=== PATIENT | male | born 1935 | race Caucasian/White ===

== ENCOUNTER 2017-11-16 11:29 | Observation (INO) | payer OTHER ==
[2017-11-16] VITALS (7 sets, daily range): BP systolic 111–134; BP diastolic 58–73; PULSE 60–64; RESP 16–20; TEMP 96.1–98.1; O2SAT 94–100
[~2017-11-16] VITALS: Ht 180.3 cm; Wt 105.0 kg
[2017-11-16] MEDS ORDERED: ASPI-516 CHEW (11:50)
[2017-11-16] MEDS ORDERED: SIMV10TA PO (11:50)
[2017-11-16] MEDS ORDERED: OMEP20TA93 PO (11:50)
[2017-11-16] MEDS ORDERED: SPIR25TA PO (11:50)
[2017-11-16] MEDS ORDERED: LEVO50TA4 PO (11:50)
[2017-11-16] MEDS ORDERED: METO25TA3 PO (11:50)
[2017-11-16] MEDS ORDERED: LOSA25TA PO (11:50)
--- NOTE | 2017-11-16 11:54 | PD ---
HPI Chief Complaint: General Weakness Time Seen by Provider: 11:47 Travel History International Travel<30 days: No Contact w/Intl Traveler<30days: No Traveled to known affect area: No History of Present Illness HPI 82-year-old male came to the emergency room with history of sudden onset intense dizziness/vertigo sensation when he got out of bed to go to the bathroom at 3 AM. He was unable to make it to the bathroom and had to go back and laid down. Then in the morning when he woke up and tried to get up he was still dizzy and unsteady on his feet. Some that he was going to fall and hence called his friend who brought him to the emergency room. Patient denies falling or hitting his head or any syncopal episodes. He did fall about 3 weeks ago when he hit his head. He went to bed last night at 10 PM and at that time he did not have any dizziness then. Vital signs are stable. Currently he is awake and answering questions appropriately. Patient has never had these kind of symptoms in the past. [facility] Past Medical History Narrative Medical List of his past medical, surgical, social and family history reviewed from the nursing note. High Cholesterol: Yes GERD: Yes Hypertension: Yes Thyroid Disease: Yes Past Surgical History Cardiac Surgery: Yes (OPEN HEART, 5 BYPASS, PACER/DEFIBRILATOR) Social History Alcohol Use: No Tobacco Use: No Substance Use: No Allergies-Medications (Allergen,Severity, Reaction): Coded Allergies: MRI PRECAUTION (Verified Adverse Reaction, Severe, NON COMPATIBLE PACEMAKER MRI PRECAUTION, 11/18/17) [employer] PACEMAKER VSV 11/17/17 Comments No known drug allergies. Reported Meds & Prescriptions Reported Meds & Active Scripts Active Reported Levothyroxine (Levothyroxine Sodium) 50 Mcg Tab 50 Mcg PO DAILY Omeprazole 20 Mg Tab 20 Mg PO DAILY Losartan (Losartan Potassium) 25 Mg Tab 25 Mg PO DAILY Metoprolol Tartrate 25 Mg Tab 25 Mg PO DAILY Spironolactone 25 Mg Tab 12.5 Mg PO DAILY Simvastatin 10 Mg Tab 10 Mg PO DAILY Aspirin 81 Mg Chew 81 Mg CHEW DAILY Narrative Medication List of his home medications reviewed from the nursing note. Review of Systems Except as stated in HPI: all other systems reviewed are Neg Neurologic: Positive: Dizziness Physical Exam Narrative GENERAL: Awake, alert, elderly, no obvious distress SKIN: Focused skin assessment warm/dry. HEAD: Atraumatic. Normocephalic. EYES: Pupils equal and round. No scleral icterus. No injection or drainage. ENT: No nasal bleeding or discharge. Mucous membranes pink and moist. NECK: Trachea midline. No JVD. CARDIOVASCULAR: Regular rate and rhythm. No murmur appreciated. RESPIRATORY: No accessory muscle use. Clear to auscultation. Breath sounds equal bilaterally. GASTROINTESTINAL: Abdomen soft, non-tender, nondistended. Hepatic and splenic margins not palpable. MUSCULOSKELETAL: No obvious deformities. No clubbing. No cyanosis. No edema. NEUROLOGICAL: Awake and alert. No obvious cranial nerve deficits. Motor grossly within normal limits. Normal speech. Very unsteady gait when patient was asked to stand up. It was wide-based and hesitant. PSYCHIATRIC: Appropriate mood and affect; insight and judgment normal. Data Data Last Documented VS Vital Signs Date Time Temp Pulse Resp B/P (MAP) Pulse Ox O2 Delivery O2 Flow Rate FiO2 11/16/17 13:20 64 20 131/63 (85) 94 11/16/17 11:44 97.6 Orders Orders Electrocardiogram (11/16/17 12:04) Prothrombin Time / Inr (Pt) (11/16/17 12:04) Complete Blood Count With Diff (11/16/17 12:04) Basic Metabolic Panel (Bmp) (11/16/17 12:04) Troponin I (11/16/17 12:04) Urinalysis - C+S If Indicated (11/16/17 12:04) Ct Brain W/O Iv Contrast(Rout) (11/16/17 12:04) Chest, Single Ap (11/16/17 12:04) Ecg Monitoring (11/16/17 12:04) Iv Access Insert/Monitor (11/16/17 12:04) Oximetry (11/16/17 12:04) Sodium Chloride 0.9% Flush (Ns Flush) (11/16/17 12:15) Meclizine (Antivert) (11/16/17 12:15) Sodium Chlor 0.9% 250 Ml Inj (Ns 250 Ml (11/16/17 12:15) Admit Order (Ed Use Only) (11/16/17 13:46) Labs Laboratory Tests Test 11/16/17 12:20 11/16/17 13:10 White Blood Count 8.4 TH/MM3 Red Blood Count 5.07 MIL/MM3 Hemoglobin 15.3 GM/DL Hematocrit 47.1 % Mean Corpuscular Volume 92.9 FL Mean Corpuscular Hemoglobin 30.1 PG Mean Corpuscular Hemoglobin Concent 32.4 % Red Cell Distribution Width 13.3 % Platelet Count 193 TH/MM3 Mean Platelet Volume 8.1 FL Neutrophils (%) (Auto) 78.9 % Lymphocytes (%) (Auto) 12.8 % Monocytes (%) (Auto) 5.2 % Eosinophils (%) (Auto) 2.8 % Basophils (%) (Auto) 0.3 % Neutrophils # (Auto) 6.7 TH/MM3 Lymphocytes # (Auto) 1.1 TH/MM3 Monocytes # (Auto) 0.4 TH/MM3 Eosinophils # (Auto) 0.2 TH/MM3 Basophils # (Auto) 0.0 TH/MM3 CBC Comment AUTO DIFF Differential Comment AUTO DIFF CONFIRMED Prothrombin Time 10.5 SEC Prothromb Time International Ratio 1.0 RATIO Blood Urea Nitrogen 19 MG/DL Creatinine 1.40 MG/DL Random Glucose 109 MG/DL Calcium Level 9.1 MG/DL Sodium Level 138 MEQ/L Potassium Level 4.3 MEQ/L Chloride Level 104 MEQ/L Carbon Dioxide Level 27.0 MEQ/L Anion Gap 7 MEQ/L Estimat Glomerular Filtration Rate 48 ML/MIN Troponin I LESS THAN 0.02 NG/ML Vitamin B12 Level 345 PG/ML Urine Collection Type CLEAN CATCH Urine Color YELLOW Urine Turbidity CLEAR Urine pH 6.0 Urine Specific [place] 1.013 Urine Protein NEG mg/dL Urine Glucose (UA) NEG mg/dL Urine Ketones NEG mg/dL Urine Occult Blood NEG Urine Nitrite NEG Urine Bilirubin NEG Urine Leukocyte Esterase NEG Urine Squamous Epithelial Cells 0-5 /hpf Urine Amorphous Sediment FEW Microscopic Urinalysis Comment CULT NOT INDICATED Urine Collection Time 1310 MDM Medical Decision Making Medical Screen Exam Complete: Yes Emergency Medical Condition: Yes Medical Record Reviewed: Yes Interpretation(s) Twelve-lead EKG was reviewed by me. Paced rhythm. Heart rate of 69 bpm. Differential Diagnosis Intracranial bleed, TIA, BPV Narrative Course 1:29 PM patient was given meclizine and blood test and CAT scan was ordered. Test results of back and within acceptable limits. Patient was just asked to be ambulated and needed some assistance. He told me that he feels much improved but he is not back to his baseline in terms of unsteadiness. On a scale of 0/10 and 0 being normal steadiness and 10 being worst dizziness he is 4 out of 10. He told me that at night when he got out of his bed and was dizzy was 9-10 out of 10. At this point I have slight concern about posterior circulation stroke or TIA. Patient has a pacemaker/defibrillator. I would like to admit him and be worked up for this. Patient is agreeable to the plan. Procedures EKG Prior to Arrival: No Diagnosis Primary Impression: Dizziness Additional Impression: possible TIA Admitting Information Admitting Physician Requests: Observation Scripts Misc. Devices (Roller Walker) 1 Mis Mis EA .XX NOW, #1 Prov: Live Lopez MD 11/17/17 Val Gamez MD Nov 16, 2017 11:54
[2017-11-16] MEDS ORDERED: SODIUM CHLORIDE 0.9% FLUSH 10 ML FLUSH IVF PRN (12:15)
[2017-11-16] MEDS ORDERED: MECLIZINE HCL 25 MG TAB PO ONE (12:15)
[2017-11-16] MEDS ORDERED: SODIUM CHLOR 0.9% 250 ML INJ 250 ML IV ONE (12:15)
--- NOTE | 2017-11-16 12:27 | RADRPT ---
EXAM DATE/TIME: 11/16/2017 12:15 [facility] COMPARISON: No previous studies available for comparison. INDICATIONS : CVA, dizzy, unable to control legs, MEDICAL HISTORY : Cardiovascular disease. SURGICAL HISTORY : CABG. Pacemaker. ENCOUNTER: Initial ACUITY: 1 day PAIN SCORE: 0/10 LOCATION: Bilateral chest FINDINGS: AP upright portable view of the chest demonstrate moderate cardiomegaly with postsurgical changes rel ated to prior CABG surgery and a 3-lead AICD. The pulmonary vasculature is normal in caliber. The mercy gs are hypoinflated but otherwise clear. Osseous structures demonstrate degenerative changes. CONCLUSION: Mild cardiomegaly. No evidence of congestive heart failure or acute cardiopulmonary disease. Lady Sawyer MD on November 16, 2017 at 12:23 Board Certified Radiologist. This report was verified electronically.
[2017-11-16 12:31] LABS: AUTOMATED NEUTROPHIL # 6.7 TH/MM3 (1.8-7.7); BASOPHIL % 0.3 % (0.0-2.0); EOSINOPHIL # 0.2 TH/MM3 (0-0.4); EOSINOPHIL % 2.8 % (0.0-4.0); HEMATOCRIT 47.1 % (39.0-51.0); HEMOGLOBIN 15.3 GM/DL (13.0-17.0); LYMPH % 12.8 % (9.0-44.0); LYMPHOCYTE # 1.1 TH/MM3 (1.0-4.8); MEAN CELL VOLUME 92.9 FL (80.0-100.0); MEAN CORPUSCULAR HEMOGLOBIN 30.1 PG (27.0-34.0); MEAN CORPUSCULAR HGB CONC 32.4 % (32.0-36.0); MEAN PLATELET VOLUME 8.1 FL (7.0-11.0); MONO % 5.2 % (0.0-8.0); MONOCYTE # 0.4 TH/MM3 (0-0.9); NEUT % 78.9 % (16.0-70.0); PLATELET COUNT 193 TH/MM3 (150-450); RED BLOOD COUNT 5.07 MIL/MM3 (4.50-5.90); RED CELL DISTRIBUTION WIDTH 13.3 % (11.6-17.2); WHITE BLOOD COUNT 8.4 TH/MM3 (4.0-11.0)
[2017-11-16 12:41] LABS: CHLORIDE 104 MEQ/L (98-107); SODIUM (NA) 138 MEQ/L (136-145)
[2017-11-16 12:44] LABS: CALCIUM 9.1 MG/DL (8.5-10.1); GLUCOSE,RANDOM 109 MG/DL (74-106); PROTHROMBIN TIME - PATIENT 10.5 SEC (9.8-11.6)
[2017-11-16 12:45] LABS: BLOOD UREA NITROGEN 19 MG/DL (7-18)
--- NOTE | 2017-11-16 12:45 | RADRPT ---
EXAM DATE/TIME: 11/16/2017 12:32 [facility] COMPARISON: No previous studies available for comparison. INDICATIONS : Lightheaded and weak. RADIATION DOSE: 59.73 CTDIvol (mGy) MEDICAL HISTORY : Cardiovascular disease. Hypercholesterolemia. Hypertension. SURGICAL HISTORY : Pacemaker. CABG ENCOUNTER: Initial ACUITY: 1 day PAIN SCALE: 2/10 LOCATION: cranial TECHNIQUE: Multiple contiguous axial images were obtained of the head. Using automated exposure control and adj ustment of the mA and/or kV according to patient size, radiation dose was kept as low as reasonably a chievable to obtain optimal diagnostic quality images. DICOM format image data is available electro nically for review and comparison. FINDINGS: CEREBRUM: The ventricles are normal for age. No evidence of midline shift, mass lesion, hemorrhage or acute in farction. No extra-axial fluid collections are seen. POSTERIOR FOSSA: The cerebellum and brainstem are intact. The 4th ventricle is midline. The cerebellopontine angle i s unremarkable. EXTRACRANIAL: The visualized portion of the orbits is intact. SKULL: The calvaria is intact. No evidence of skull fracture. CONCLUSION: No acute disease. Lady Sawyer MD on November 16, 2017 at 12:40 Board Certified Radiologist. This report was verified electronically.
[2017-11-16 12:48] LABS: GLOMERULAR FILTRATION RATE 48 ML/MIN (>89)
[2017-11-16 12:53] LABS: TROPONIN I LESS THAN 0.02 NG/ML (0.02-0.05)
[2017-11-16 14:12] LABS: BILIRUBIN, URINE NEG (NEG); BLOOD, URINE NEG (NEG); GLUCOSE,URINE NEG (NEG); KETONE, URINE NEG (NEG); NITRITE,URINE NEG (NEG); URINE LEUKOCYTE ESTERASE NEG (NEG)
[2017-11-16 14:50] LABS: AMORPHOUS SEDIMENT, URINE FEW; SQUAMOUS EPITHELIAL CELL URINE 0-5 /hpf (0-5); URINE COLOR YELLOW (YELLW/STRAW)
--- NOTE | 2017-11-16 15:29 | HHI.HP ---
[facility] Arslan Jeter MD Admission Diagnosis TIA, dizziness Diagnoses: Chief Complaint: Unsteadiness on my feet and almost falling Travel History International Travel<30 Days: No Contact w/Intl Traveler <30 Da: No Traveled to Known Affected Are: No History of Present Illness 82-year-old white male being a minute for strokelike symptoms and an unsteady gait. Patient reports being in his usual state of health until sometime in the middle of the night last night he got up to use the restroom and upon getting off of his bed felt very unsteady in his balance and his gait and immediately held on to the bookshelf which he used to coast towards the restroom. Says that he did not have any pain or any focal weakness but rather his legs almost gave away and just could not independently bear weight without assistance. He eventually use the restroom and in the same manner coasted holding onto items in appliances back towards the bed. Later in the morning around 7:30 when he got up again his symptoms did return but to a lesser degree. Since he had to ambulate very cautiously and still felt unsteady in his gait and had to use some sort of device to hold onto he decided come to the emergency department. He does not report any loretta lightheadedness or dizziness nor any nausea. Denies any shortness of breath or chest pain. Denies any sudden vision changes. Patient does state that he rarely drinks of bottle of water a day. PMH significant for a back crush injury that did not require intervention that happened 20 yrs ago. Review of Systems Except as stated in HPI: all other systems reviewed are Neg Past Family Social History Past Medical History Coronary artery disease with bypass Allergies: Coded Allergies: No Known Allergies (Unverified , 11/16/17) Family History Father with heart disease Social History Denies smoking. Says he hasn't drunk alcohol in 2 years. Physical Exam Vital Signs Vital Signs Date Time Temp Pulse Resp B/P (MAP) Pulse Ox O2 Delivery O2 Flow Rate FiO2 11/16/17 13:20 64 20 131/63 (85) 94 11/16/17 12:29 62 20 131/63 (85) 98 11/16/17 12:24 96 11/16/17 11:44 97.6 60 20 128/73 (91) 100 Physical Exam VS: afebrile GENERAL: elderly white male in no acute distress, well-nourished SKIN: Warm and dry. EYES: Pupils equal and round. No scleral icterus. No injection or drainage. ENT: No nasal bleeding or discharge. Mucous membranes pink and moist. CARDIOVASCULAR: Regular rate and rhythm. no murmurs RESPIRATORY: No accessory muscle use. Clear to auscultation. Breath sounds equal bilaterally. GASTROINTESTINAL: Abdomen soft, non-tender, nondistended. Extremities: No clubbing, cyanosis, or edema. No obvious deformities. MUSCULOSKELETAL: grossly intact ROM with 5/5 strength in upper and lower extremities proximally; adequate muscle bulk and tone for age and habitus. Equivocal Romberg test with the patient slightly wobbling his stance around as he stands in place. Intact finger to nose bilaterally and intact heel to monte bilaterally. Intact sensation to pinprick over lower extremities and upper extremities proximally. Intact sensation to face to finger touch bilaterally. Extraocular motions intact with intact conjugate gaze, uvula and tongue are in midline. Symmetrical +1 patellar reflexes bilaterally. NEUROLOGICAL: Awake and alert. No obvious cranial nerve deficits. No facial droop nor slurred speech noted. PSYCHIATRIC: Appropriate mood and affect; insight and judgment normal. Laboratory Laboratory Tests Test 11/16/17 12:20 11/16/17 13:10 White Blood Count 8.4 Red Blood Count 5.07 Hemoglobin 15.3 Hematocrit 47.1 Mean Corpuscular Volume 92.9 Mean Corpuscular Hemoglobin 30.1 Mean Corpuscular Hemoglobin Concent 32.4 Red Cell Distribution Width 13.3 Platelet Count 193 Mean Platelet Volume 8.1 Neutrophils (%) (Auto) 78.9 Lymphocytes (%) (Auto) 12.8 Monocytes (%) (Auto) 5.2 Eosinophils (%) (Auto) 2.8 Basophils (%) (Auto) 0.3 Neutrophils # (Auto) 6.7 Lymphocytes # (Auto) 1.1 Monocytes # (Auto) 0.4 Eosinophils # (Auto) 0.2 Basophils # (Auto) 0.0 CBC Comment AUTO DIFF Differential Comment AUTO DIFF CONFIRMED Prothrombin Time 10.5 Prothromb Time International Ratio 1.0 Blood Urea Nitrogen 19 Creatinine 1.40 Random Glucose 109 Calcium Level 9.1 Sodium Level 138 Potassium Level 4.3 Chloride Level 104 Carbon Dioxide Level 27.0 Anion Gap 7 Estimat Glomerular Filtration Rate 48 Troponin I LESS THAN 0.02 Urine Collection Type CLEAN CATCH Urine Color YELLOW Urine Turbidity CLEAR Urine pH 6.0 Urine Specific [place] 1.013 Urine Protein NEG Urine Glucose (UA) NEG Urine Ketones NEG Urine Occult Blood NEG Urine Nitrite NEG Urine Bilirubin NEG Urine Leukocyte Esterase NEG Urine Squamous Epithelial Cells 0-5 Urine Amorphous Sediment FEW Microscopic Urinalysis Comment CULT NOT INDICATED Urine Collection Time 1310 Result Diagram: 11/16/17 1220 11/16/17 1220 Imaging Last Impressions Head CT 11/16/17 1204 Signed Impressions: Service Date/Time: Thursday, November 16, 2017 12:32 - CONCLUSION: No acute disease. Lady Sawyer MD Chest X-Ray 11/16/17 1204 Signed Impressions: Service Date/Time: Thursday, November 16, 2017 12:15 - CONCLUSION: Mild cardiomegaly. No evidence of congestive heart failure or acute cardiopulmonary disease. MD Live Castillo VTE Risk Assessment Caprini VTE Risk Assessment: Mod/High Risk (score >= 2) Caprini Risk Assessment Model Point Value = 1 Point Value = 2 Point Value = 3 Point Value = 5 Age 41-60 Minor surgery BMI > 25 kg/m2 Swollen legs Varicose veins or History of unexplained or recurrent spontaneous Oral contraceptives or hormone replacement Sepsis (< 1 month) Serious lung disease, including pneumonia (< 1 month) Abnormal pulmonary function Acute myocardial infarction Congestive heart failure (< 1 month) History of inflammatory bowel disease Medical patient at bed rest Age 61-74 Arthroscopic surgery Major open surgery (> 45 min) Laparoscopic surgery (> 45 min) Malignancy Confined to bed (> 72 hours) Immobilizing plaster cast Central venous access Age >= 75 History of VTE Family history of VTE Factor V Leiden Prothrombin [id number] Lupus anticoagulant Anticardiolipin antibodies Elevated serum homocysteine Heparin-induced thrombocytopenia Other congenital or acquired thrombophilia Stroke (< 1 month) Elective arthroplasty Hip, pelvis, or leg fracture Acute spinal cord injury (< 1 month) Prophylaxis Regimen Total Risk Factor Score Risk Level Prophylaxis Regimen 0-1 Low Early ambulation 2 Moderate Order ONE of the following: *Sequential Compression Device (SCD) *Heparin 5000 units SQ BID 3-4 Higher Order ONE of the following medications: *Heparin 5000 units SQ TID *Enoxaparin/Lovenox 40 mg SQ daily (WT < 150 kg, CrCl > 30 mL/min) *Enoxaparin/Lovenox 30 mg SQ daily (WT < 150 kg, CrCl > 10-29 mL/min) *Enoxaparin/Lovenox 30 mg SQ BID (WT < 150 kg, CrCl > 30 mL/min) AND/OR *Sequential Compression Device (SCD) 5 or more Highest Order ONE of the following medications: *Heparin 5000 units SQ TID (Preferred with Epidurals) *Enoxaparin/Lovenox 40 mg SQ daily (WT < 150 kg, CrCl > 30 mL/min) *Enoxaparin/Lovenox 30 mg SQ daily (WT < 150 kg, CrCl > 10-29 mL/min) *Enoxaparin/Lovenox 30 mg SQ BID (WT < 150 kg, CrCl > 30 mL/min) AND *Sequential Compression Device (SCD) Assessment and Plan Assessment and Plan 82 yr white male being a minute for possible stroke like symptoms and unsteady gait Unsteady gait - Etiology could involve TIA/stroke like etiology versus lumbar spine processes versus orthostatic hypotension secondary to dehydration - CT head is unremarkable. We'll check with MRI to see if the patient is compatible for the study given his cardiac devices. - Fall precautions, PT/OT assessments. - Carotid ultrasound, echocardiogram, and lipid panel ordered - Independently reviewed the EKG and see a paced rhythm - We'll obtain B12 levels as well as a CT lumbar spine to evaluate for spinal stenosis/acute low back etiologies - permissive hypertension CAD - resume home meds except for BP mild WESLY - small bolus from ED - BMP in AM Jeramyx Live Lopez MD Nov 16, 2017 15:29
[2017-11-16] MEDS ORDERED: ASPIRIN 81 MG CHEW TAB PO ONE (15:30)
[2017-11-16] MEDS ORDERED: PILL SPLITTER OTHER PRN (15:45)
--- NOTE | 2017-11-16 16:28 | RADRPT ---
EXAM DATE/TIME: 11/16/2017 15:33 [facility] COMPARISON: No previous studies available for comparison. INDICATIONS : Transischemic attack. MEDICAL HISTORY : Cardiovascular disease. Hypercholesterolemia. Hypertension. SURGICAL HISTORY : Pacemaker. CABG. ENCOUNTER: Initial ACUITY: 1 day PAIN SCORE: 0/10 LOCATION: Right neck PEAK SYSTOLIC VELOCITIES (cm/sec): ICA/CCA RATIO: Right: 1.2 Left: 0.77 ICA: Right: 129 Left: 92 CCA: Right: 104 Left: 119 ECA: Right: 151 Left: 118 VERTEBRAL: Right: 38 antegrade Left: 46 antegrade Elevated flow velocities and ICA/CCA ratios have been found to correlate with increased degrees of vessel stenosis, calculated as percentage of diameter relative to a normal segment of distal ICA/CCA FINDINGS: RIGHT CAROTID: Moderate calcified and noncalcified plaque at the carotid bulb. LEFT CAROTID: Moderate calcified and noncalcified plaque at the carotid bulb. VERTEBRAL ARTERIES: Antegrade flow is seen in both vertebral arteries. MISCELLANEOUS: None. CONCLUSION: Moderate calcified and noncalcified plaque at the carotid bulbs. No evidence of hemodynamically signi ficant carotid stenosis using peak systolic velocity criteria. Wily Patel MD on November 16, 2017 at 16:25 Board Certified Radiologist. This report was verified electronically.
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
[2017-11-16] MEDS ORDERED: ENOXAPARIN SODIUM 30 MG/0.3 ML SYRINGE SQ SCH (21:00)
[2017-11-16] MEDS ORDERED: ATORVASTATIN 10 MG TAB PO SCH (21:00)
[2017-11-17 00:26] VITALS: BP 119/57; PULSE 84; RESP 18; TEMP 97.9; O2SAT 97
[2017-11-17 05:42] VITALS: BP 120/57; PULSE 60; RESP 16; TEMP 98; O2SAT 96
[2017-11-17] MEDS ORDERED: LEVOTHYROXINE SODIUM 50 MCG TAB PO SCH (06:00)
[2017-11-17 08:00] VITALS: BP 127/68; PULSE 60; RESP 20; TEMP 96.8; O2SAT 98
[2017-11-17 08:02] VITALS: PULSE 60
[2017-11-17 08:24] LABS: CHOLESTEROL/ HDL RATIO 3.3 RATIO
[2017-11-17] MEDS ORDERED: PANTOPRAZOLE SOD 20 MG DELAYED RELEASE TAB PO SCH (09:00)
[2017-11-17] MEDS ORDERED: SPIRONOLACTONE 25 MG TAB PO SCH (09:00)
[2017-11-17 12:00] VITALS: BP 118/61; PULSE 70; RESP 20; TEMP 97; O2SAT 96
[2017-11-17] MEDS ORDERED: SODIUM CHLOR 0.9% 1000 ML INJ 1,000 ML IV ONE (13:45)
--- NOTE | 2017-11-17 14:36 | HHI.FF ---
Face to Face Verification Diagnosis: (1) Foraminal stenosis of lumbosacral region (2) Dizziness Physical Therapy Order: Evaluate and Treat Occupational Therapy Order: Evaluate and Treat Home Health Nursing Order: Medical education Signs/symptoms of disease process Nursing assessment with vital signs I have seen patient Shukri Goodman on 11/17/17. My clinical findings support the need for the requested home health care services because: Limited ability to care for self I certify that my clinical findings support that this patient is homebound because: Unsteady gait/balance Live Lopez MD Nov 17, 2017 14:35
[2017-11-17] MEDS ORDERED: ROLLER WALKER1 MI1 (14:38)
--- NOTE | 2017-11-17 16:14 | ECHRPT ---
Indication: cva/tia CONCLUSIONS Normal left ventricular size. The left ventricular systolic function is moderately reduced with an estimated ejection fraction of 35%. Moderate global hypokinesis. The left atrial size is upper limits of normal. [id number] mitral valve regurgitation. No aortic valve regurgitation. There is mild tricuspid valve regurgitation. The estimated pulmonary arterial pressure is 34 mmHg. ICD/pacemaker lead in the right heart. BP: / HR: Rhythm: MEASUREMENTS (Male / Female) Normal Values Technical Quality:Fair 2D ECHO LV Diastolic Diameter PLAX 4.5 cm 4.2 - 5.9 / 3.9 - 5.3 cm LV Systolic Diameter PLAX 3.8 cm IVS Diastolic Thickness 1.1 cm 0.6 - 1.0 / 0.6 - 0.9 cm LVPW Diastolic Thickness 0.8 cm 0.6 - 1.0 / 0.6 - 0.9 cm LV Relative Wall Thickness 0.4 RV Internal Dim ED PLAX 3.6 cm M-MODE Aortic Root Diameter MM 3.9 cm LA Systolic Diameter MM 4.6 cm LA Ao Ratio MM 1.2 AV Cusp Separation MM 2.0 cm DOPPLER Mitral E Point Velocity 50.8 cm/s Mitral A Point Velocity 42.4 cm/s Mitral E to A Ratio 1.2 LV E' Lateral Velocity 6.1 cm/s Mitral E to LV E' Lateral Ratio 8.3 LV E' Septal Velocity 5.9 cm/s Mitral E to LV E' Septal Ratio 8.7 TR Peak Velocity 246.0 cm/s TR Peak Gradient 24.2 mmHg Right Atrial Pressure 10.0 mmHg Pulmonary Artery Systolic Pressu 34.2 mmHg Right Ventricular Systolic Press 34.2 mmHg FINDINGS LEFT VENTRICLE Normal left ventricular size. The left ventricular systolic function is moderately reduced with an estimated ejection fraction in the range of 40% RIGHT VENTRICLE Normal right ventricular size and systolic function. LEFT ATRIUM The left atrial size is upper limits of normal. RIGHT ATRIUM The right atrial size is normal. ATRIAL SEPTUM Normal atrial septal thickness without atrial level shunting by limited color doppler interrogation. AORTA The aortic root and proximal ascending aorta are normal in size on limited imaging. MITRAL VALVE Structurally normal mitral valve. [id number] mitral valve regurgitation. AORTIC VALVE Trileaflet aortic valve. No aortic valve regurgitation. TRICUSPID VALVE Structurally normal tricuspid valve. There is mild tricuspid valve regurgitation. The estimated pulmonary arterial pressure is 34.2 mmHg. PULMONARY VALVE Trivial pulmonary valve regurgitation. VESSELS The inferior vena cava is normal in size. PERICARDIUM No pericardial effusion. Donna Duckworth MD, FACC (Electronically Signed) Final Date:17 November 2017 16:12
--- NOTE | 2017-11-17 18:49 | EKG ---
Date Performed: 11/16/2017 Time Performed: 12:24:08 PTAGE: 82 years EKG: ELECTRONIC ATRIAL PACEMAKER ELECTRONIC VENTRICULAR PACEMAKER ABNORMAL RHYTHM ECG NO PREVIOUS TRACING DOCTOR: Renan Pierre Interpretating Date/Time 11/17/2017 18:48:23
--- NOTE | 2017-11-17 20:24 | HHI.PR ---
Subjective Remarks Nursing denies any deterioration since last night. Patient himself still has some unsteadiness on his feet based upon assessments from occupational therapy and physical therapy. However he overall feels okay. No reports of any strokelike symptoms of numbness or tingling or focal deficits. Objective Vital Signs Date Time Temp Pulse Resp B/P (MAP) Pulse Ox O2 Delivery O2 Flow Rate FiO2 11/17/17 12:00 97.0 70 20 118/61 (80) 96 11/17/17 08:02 60 11/17/17 08:00 96.8 60 20 127/68 (87) 98 11/17/17 05:42 98.0 60 16 120/57 (78) 96 11/17/17 00:26 97.9 84 18 119/57 (77) 97 11/16/17 21:02 98.1 60 16 111/58 (75) 96 I/O 11/16/17 11/16/17 11/16/17 11/17/17 11/17/17 11/17/17 07:00 15:00 23:00 07:00 15:00 23:00 Intake Total 360 ml 1000 ml Output Total 200 ml 300 ml 650 ml Balance -200 ml 60 ml -650 ml 1000 ml Intake Oral 360 ml IV Total 1000 ml Output Urine Total 200 ml 300 ml 650 ml # Voids 1 # Bowel Movements 0 0 Result Diagram: 11/16/17 1220 11/16/17 1220 Objective Remarks Extraocular motions intact, no nystagmus noted No facial droop, no slurred speech, 5 out of 5 proximal upper and lower extremity strength. A/P Assessment and Plan Unsteady gait - CT lumbar spine is showing some lumbar foraminal stenosis which is likely the cause of this. CT scan of the head is showing no acute findings. Unable to obtain MRI due to cardiac devices. Carotid ultrasounds are unremarkable for any hemodynamic stenosis.Echocardiogram shows no mural thrombus. It does show a decreased ejection fraction which I suspect has been something that is chronic as the patient is on classic heart failure medications such as losartan , spironolactone, and metoprolol. I informed the patient that most likely his unsteady gait is from his lumbar stenosis and that he can follow-up with a neurosurgeon as an outpatient. I also informed him that he can follow-up with his primary care provider and perform a repeat CT head to see if a stroke truly happened which I doubt. Otherwise he can continue his home medications including his statin. Patient has met maximum benefit from hospitalization and is clinically stable for discharge. Live Lopez MD Nov 17, 2017 20:24
== END 2017-11-17 17:23 | disposition home health service (06) ==
LOC: PHED 11:29 → PHEDA 13:48 → PH3A 14:54
PROVIDERS: ADMIT Hospitalist; ATTEND Hospitalist
DX: R26.81 Unsteadiness on feet (principal); R53.1 Weakness; R42 Dizziness and giddiness; E86.0 Dehydration; N17.9 Acute kidney failure, unspecified; I10 Essential (primary) hypertension; I25.10 Atherosclerotic heart disease of native coronary artery without angina pectoris; M48.061 Spinal stenosis, lumbar region without neurogenic claudication; E07.9 Disorder of thyroid, unspecified; K21.9 Gastro-esophageal reflux disease without esophagitis; E78.00 Pure hypercholesterolemia, unspecified; Z95.0 Presence of cardiac pacemaker; Z95.1 Presence of aortocoronary bypass graft
CPT/HCPCS: 70450; 71045; 72131; 80048; 80061; 81001; 82607; 82948; 84484; 85025; 85610; 93005; 93306; 93880; 96360; 96361; 96372; 97162; 97166; 99285; G0378; G8987; G8988; G8989; J1650; J7030; J7050